=== PATIENT | male | born 1980 | race Hispanic/Latino ===

== ENCOUNTER 2018-06-25 13:42 | Emergency (ER) | payer MEDICAID ==
[2018-06-25 13:49] VITALS: BP 115/75; PULSE 73; RESP 16; TEMP 98; O2SAT 97
--- NOTE | 2018-06-25 14:43 | RAD ---
Date of service: 06/25/2018 HISTORY: Cough and shortness of breath COMPARISON: No prior. TECHNIQUE: Chest PA and lateral FINDINGS: LINES AND TUBES: None. LUNG AND PLEURA: The lungs are well inflated and clear. No pleural effusion or pneumothorax. HEART AND MEDIASTINUM: The heart is not enlarged. No aortic atherosclerotic calcifications present. The hilar and mediastinal contours are within normal limits. SKELETAL STRUCTURES: The bony structures are within normal limits for the patient's age. VISUALIZED UPPER ABDOMEN: Normal. OTHER FINDINGS: None. IMPRESSION: No active pulmonary disease.
--- NOTE | 2018-06-25 14:57 | ED PDOC ---
HPI: Influenza Time Seen by Provider: 06/25/18 13:58 Chief Complaint: Cough, Cold, Congestion Chief Complaint (Provider): Flu-like symptoms History Per: Patient Exam Limitations: no limitations Onset/Duration Of Symptoms: Days (4) Sick Contacts (Context): Family Member(s) Hx Influenza Vaccination: No Additional complaint(s):: 37 year old male with no significant past medical history presents to the ED for an evaluation of flu-like symptoms. He states he developed cough and fever of 102F onset 4 days ago with body aches. Last night the fever was 100.5F for which he took Ibuprofen. He did not take any medication today. Patient occasionally has a cough that is productive of green sputum and chest pain that is non- radiating. The chest pain worsens with deep breaths. He has not received a flu shot this season and can tolerate liquids with associated symptoms of nausea but no vomiting. Of note: patient is here with his who has similar symptoms Past Medical History Reviewed: Historical Data, Nursing Documentation, Vital Signs Vital Signs: Last Vital Signs Temp 98.0 F 06/25/18 13:46 Pulse 73 06/25/18 13:46 Resp 16 06/25/18 13:46 BP 115/75 06/25/18 13:46 Pulse Ox 97 06/25/18 13:46 - Medical History PMH: No Chronic Diseases - Family History Family History: States: Unknown Family Hx - Home Medications Home Medications: Ambulatory Orders Medication Instructions Recorded Benzonatate [Tessalon Perles] 100 mg PO BID PRN 7 Days sgl 06/25/18 Ibuprofen [Motrin Tab] 600 mg PO Q6 PRN 7 Days tab 06/25/18 - Allergies Allergies/Adverse Reactions: Allergies Allergy/AdvReac Type Severity Reaction Status Date / Time No Known Allergies Allergy Verified 06/25/18 14:19 Review of Systems ROS Statement: Except As Marked, All Systems Reviewed And Found Negative Constitutional: Positive for: Fever, Other (body aches) Cardiovascular: Positive for: Chest Pain Respiratory: Positive for: Cough Gastrointestinal: Positive for: Nausea. Negative for: Vomiting Physical Exam - Reviewed Nursing Documentation Reviewed: Yes Vital Signs Reviewed: Yes - Physical Exam Appears: Positive for: No Acute Distress Head Exam: Positive for: ATRAUMATIC, NORMAL INSPECTION, NORMOCEPHALIC ENT: Positive for: Normal ENT Inspection. Negative for: Nasal Congestion, Pharyngeal Erythema, Tonsillar Exudate, Tonsillar Swelling Neck: Negative for: Normal (tonsillar adenopathy) Cardiovascular/Chest: Positive for: Regular Rate, Rhythm. Negative for: Murmur Respiratory: Positive for: Normal Breath Sounds. Negative for: Respiratory Distress Neurological/Psych: Positive for: Awake, Alert, Normal Tone, Oriented (x3) Medical Decision Making Medical Decision Making: Time: 14:19 Initial Plan: CXR Ibuprofen 600mg PO x1 Patient advised he likely does have the flu and Tamiflu would not be indicated as greater than 48hrs have passed since onset of symptoms. He is advised symptomatic management 14:39 FINDINGS: LINES AND TUBES: None. LUNG AND PLEURA: The lungs are well inflated and clear. No pleural effusion or pneumothorax. HEART AND MEDIASTINUM: The heart is not enlarged. No aortic atherosclerotic calcifications present. The hilar and mediastinal contours are within normal limits. SKELETAL STRUCTURES: The bony structures are within normal limits for the patient's age. VISUALIZED UPPER ABDOMEN: Normal. OTHER FINDINGS: None. IMPRESSION: No active pulmonary disease. Upon provider evaluation patient is medically stable, and requires no further treatment in the ED at this time. Patient will be discharged. Counseling was provided and all questions were answered regarding diagnosis and need for follow up with PMD. There is agreement to discharge plan. Return if symptoms persist or worsen. Scribe Attestation: Documented by Danika Olivo, acting as a scribe for Angi Ta PA-C. Provider Scribe Attestation: All medical record entries made by the Scribe were at my direction and personally dictated by me. I have reviewed the chart and agree that the record accurately reflects my personal performance of the history, physical exam, medical decision making, and the department course for this patient. I have also personally directed, reviewed, and agree with the discharge instructions and disposition. - ECG O2 Sat by Pulse Oximetry: 97 (RA) Pulse Ox Interpretation: Normal Disposition - Clinical Impression Clinical Impression: Influenza - Patient ED Disposition Is Patient to be Admitted: No - Disposition Disposition: Routine/Home Disposition Time: 15:03 Condition: STABLE Additional Instructions: Follow up with your primary care provider if symptoms persist. Return to ER if your chest pain worsens despite taking medications or if you develop shortness of breath. Get lots of rest and drink plenty of fluid. Take Ibuprofen or Tylenol for pain and Tessalon Perles for cough. Prescriptions: Benzonatate [Tessalon Perles] 100 mg PO BID PRN 7 Days sgl PRN Reason: Cough Ibuprofen [Motrin Tab] 600 mg PO Q6 PRN 7 Days tab PRN Reason: Pain, Moderate (4-7) Instructions: Flu, Adult (DC) Forms: [facility] (Tajik) Print Language: DUTCH
== END 2018-06-25 16:53 | disposition home or self-care (01) ==
LOC: H.ER 13:42
DX: J11.1 Influenza due to unidentified influenza virus with other respiratory manifestations (principal)